=== PATIENT | male | born 1940 | race Caucasian/White ===

== ENCOUNTER 2019-06-11 15:57 | Inpatient (IN) ==
[2019-06-11] MEDS ORDERED: *HR* Warfarin 5 MG TABLET PO ONE (20:00)
[2019-06-11] MEDS ORDERED: *HR* Dextrose 50 % in Water (Vial) 50 ML VIAL IVP PRN (20:01)
[2019-06-11] MEDS ORDERED: D5% in Water 1,000 ML IVC PRN (20:01)
[2019-06-11] MEDS ORDERED: Dextrose Gel 15 GM/37.5 ML TUBE PO PRN ×2 (20:01)
[2019-06-11] MEDS ORDERED: Albuterol 2.5 MG/3 ML NEBULIZER IH PRN (20:11)
[2019-06-11] MEDS: Aspirin Enteric Coated 81 MG Tablet PO SCH (21:39)
[2019-06-11] MEDS: Gabapentin 400 MG CAPSULE PO SCH (21:40)
[2019-06-11] MEDS: ALPRAZolam 0.5 MG TABLET PO SCH (21:42)
[2019-06-11] MEDS: *HR* OxyCODONE/APAP 5/325 TABLET PO PRN (21:42)
[2019-06-11] MEDS: Insulin LISPRO 300 UNITS/3 ML VIAL SQ SCH (22:12)
[2019-06-11] MEDS: Furosemide 40 MG TABLET PO SCH (22:38)
[2019-06-12 05:47] LABS: Basophils % 0.6 %; Eosinophils # 0.2 K/mcL (0.0-0.6); Eosinophils % 3.1 %; Hematocrit 40.1 % (37.5-50.1); Hemoglobin 13.2 g/dL (12.9-16.9); Immature Granulocytes % 0.4 % (0-4); Lymphocytes # 1.6 K/mcL (0.6-4.6); Lymphocytes % 22.3 %; Mean Corpuscular HGB Conc 32.9 g/dL (31.6-35.5); Mean Corpuscular Hemoglobin 32.1 pg (28.0-33.3); Mean Corpuscular Volume 97.6 fL (83.0-100.0); Mean Platelet Volume 10.1 fL (9.4-12.4); Monocytes # 0.8 K/mcL (0.0-1.3); Monocytes % 10.6 %; Neutrophils # 4.5 K/mcL (1.6-8.9); Platelet Count 180 K/mcL (140-400); Red Blood Count 4.11 M/mcL (4.19-5.50); White Blood Count 7.1 K/mcL (4.3-11.1)
[2019-06-12 05:51] LABS: INR 1.4
[2019-06-12 06:05] LABS: Albumin 3.3 g/dL (3.5-5.7); Albumin/Globulin Ratio 1.3 (1.1-2.2); Bilirubin,Total 0.6 mg/dL (0.3-1.0); Calcium 8.6 mg/dL (8.6-10.3); Globulin 2.5 g/dL (2.4-3.5); Magnesium 1.8 mg/dL (1.6-2.6); Potassium 4.2 mEq/L (3.5-5.1); Total Protein 5.8 g/dL (6.4-8.9)
[2019-06-12] MEDS: *HR* OxyCODONE/APAP 5/325 TABLET PO PRN ×3 (07:02→21:29)
[2019-06-12] MEDS: Insulin LISPRO 300 UNITS/3 ML VIAL SQ SCH ×4 (07:44→20:39)
[2019-06-12] MEDS: ALPRAZolam 0.5 MG TABLET PO SCH ×2 (08:30→21:29)
[2019-06-12] MEDS: Diltiazem CD (24hr) 240 MG CAPSULE PO SCH (08:30)
[2019-06-12] MEDS: Gabapentin 400 MG CAPSULE PO SCH ×3 (08:30→21:30)
[2019-06-12] MEDS: Metoprolol XL (24 HR) Succ 50 MG TAB.ER.24H PO SCH (08:30)
[2019-06-12] MEDS: Furosemide 40 MG TABLET PO SCH ×2 (08:30→17:21)
[2019-06-12] MEDS: Aspirin Enteric Coated 81 MG Tablet PO SCH ×2 (08:30→21:29)
[2019-06-12] MEDS ORDERED: Warfarin perPT PO PRN (18:00)
[2019-06-12] MEDS ORDERED: *HR* Warfarin 4 MG TABLET PO ONE (18:00)
[2019-06-13] MEDS: tiZANidine 4 MG TABLET PO PRN ×2 (05:20→21:53)
[2019-06-13 05:59] LABS: INR 1.4; Prothrombin Time 15.8 Seconds (9.4-12.1)
[2019-06-13] MEDS: Aspirin Enteric Coated 81 MG Tablet PO SCH ×2 (08:38→21:53)
[2019-06-13] MEDS: Insulin LISPRO 300 UNITS/3 ML VIAL SQ SCH ×4 (08:38→21:55)
[2019-06-13] MEDS: Metoprolol XL (24 HR) Succ 50 MG TAB.ER.24H PO SCH (08:39)
[2019-06-13] MEDS: Diltiazem CD (24hr) 240 MG CAPSULE PO SCH (08:39)
[2019-06-13] MEDS: Gabapentin 400 MG CAPSULE PO SCH ×3 (08:41→21:53)
[2019-06-13] MEDS: ALPRAZolam 0.5 MG TABLET PO SCH ×2 (08:41→21:52)
[2019-06-13] MEDS: Furosemide 40 MG TABLET PO SCH ×2 (08:41→18:00)
[2019-06-13] MEDS: *HR* OxyCODONE/APAP 5/325 TABLET PO PRN ×2 (13:19→22:44)
[2019-06-13] MEDS ORDERED: *HR* Warfarin 5 MG TABLET PO ONE (18:00)
[2019-06-14] MEDS: *HR* OxyCODONE/APAP 5/325 TABLET PO PRN ×3 (05:43→18:57)
[2019-06-14] MEDS: Insulin LISPRO 300 UNITS/3 ML VIAL SQ SCH ×4 (07:34→21:06)
[2019-06-14 07:45] LABS: INR 1.7; Prothrombin Time 19.1 Seconds (9.4-12.1)
[2019-06-14] MEDS: Diltiazem CD (24hr) 240 MG CAPSULE PO SCH (08:26)
[2019-06-14] MEDS: ALPRAZolam 0.5 MG TABLET PO SCH ×2 (08:26→20:04)
[2019-06-14] MEDS: Gabapentin 400 MG CAPSULE PO SCH ×3 (08:26→20:04)
[2019-06-14] MEDS: Aspirin Enteric Coated 81 MG Tablet PO SCH ×2 (08:26→20:03)
[2019-06-14] MEDS: Metoprolol XL (24 HR) Succ 50 MG TAB.ER.24H PO SCH (08:26)
[2019-06-14] MEDS: Furosemide 40 MG TABLET PO SCH ×2 (08:27→17:11)
[2019-06-14] MEDS ORDERED: MOM Conc 10 ML UD.LIQ PO PRN (11:12)
[2019-06-14] MEDS ORDERED: *HR* Warfarin 4 MG TABLET PO ONE (18:00)
[2019-06-15] MEDS: *HR* OxyCODONE/APAP 5/325 TABLET PO PRN ×4 (01:55→23:51)
[2019-06-15 06:40] LABS: INR 2.1; Prothrombin Time 23.6 Seconds (9.4-12.1)
[2019-06-15] MEDS: Insulin LISPRO 300 UNITS/3 ML VIAL SQ SCH ×4 (07:57→20:50)
[2019-06-15] MEDS: Aspirin Enteric Coated 81 MG Tablet PO SCH ×2 (08:06→20:56)
[2019-06-15] MEDS: ALPRAZolam 0.5 MG TABLET PO SCH ×2 (08:06→20:56)
[2019-06-15] MEDS: Furosemide 40 MG TABLET PO SCH ×2 (08:06→16:34)
[2019-06-15] MEDS: Diltiazem CD (24hr) 240 MG CAPSULE PO SCH (08:06)
[2019-06-15] MEDS: Gabapentin 400 MG CAPSULE PO SCH ×3 (08:07→20:56)
[2019-06-15] MEDS: Metoprolol XL (24 HR) Succ 50 MG TAB.ER.24H PO SCH (08:07)
[2019-06-15] MEDS ORDERED: *HR* Warfarin 4 MG TABLET PO ONE (18:00)
[2019-06-16 05:14] LABS: INR 2.5
[2019-06-16] MEDS: Gabapentin 400 MG CAPSULE PO SCH ×3 (08:01→20:30)
[2019-06-16] MEDS: Diltiazem CD (24hr) 240 MG CAPSULE PO SCH (08:01)
[2019-06-16] MEDS: Aspirin Enteric Coated 81 MG Tablet PO SCH ×2 (08:01→20:30)
[2019-06-16] MEDS: Metoprolol XL (24 HR) Succ 50 MG TAB.ER.24H PO SCH (08:02)
[2019-06-16] MEDS: ALPRAZolam 0.5 MG TABLET PO SCH ×2 (08:02→20:30)
[2019-06-16] MEDS: Furosemide 40 MG TABLET PO SCH ×2 (08:02→17:22)
[2019-06-16] MEDS: Insulin LISPRO 300 UNITS/3 ML VIAL SQ SCH ×4 (08:05→20:57)
[2019-06-16] MEDS: *HR* OxyCODONE/APAP 5/325 TABLET PO PRN ×2 (12:13→20:31)
[2019-06-16] MEDS ORDERED: *HR* Warfarin 2 MG TABLET PO ONE (18:00)
[2019-06-17] MEDS: *HR* OxyCODONE/APAP 5/325 TABLET PO PRN ×4 (04:05→23:19)
[2019-06-17 06:50] LABS: INR 2.2; Prothrombin Time 24.9 Seconds (9.4-12.1)
[2019-06-17] MEDS: Insulin LISPRO 300 UNITS/3 ML VIAL SQ SCH ×4 (07:37→21:03)
[2019-06-17] MEDS: Diltiazem CD (24hr) 240 MG CAPSULE PO SCH (08:45)
[2019-06-17] MEDS: Gabapentin 400 MG CAPSULE PO SCH ×3 (08:45→21:13)
[2019-06-17] MEDS: ALPRAZolam 0.5 MG TABLET PO SCH ×2 (08:45→21:13)
[2019-06-17] MEDS: Furosemide 40 MG TABLET PO SCH ×2 (08:46→17:11)
[2019-06-17] MEDS: Aspirin Enteric Coated 81 MG Tablet PO SCH ×2 (08:46→21:13)
[2019-06-17] MEDS: Metoprolol XL (24 HR) Succ 50 MG TAB.ER.24H PO SCH (08:46)
[2019-06-17] MEDS ORDERED: *HR* Warfarin 4 MG TABLET PO ONE (18:00)
[2019-06-18] MEDS: *HR* OxyCODONE/APAP 5/325 TABLET PO PRN ×2 (05:15→14:41)
[2019-06-18 05:56] LABS: Prothrombin Time 22.5 Seconds (9.4-12.1)
[2019-06-18] MEDS: Insulin LISPRO 300 UNITS/3 ML VIAL SQ SCH ×4 (08:12→20:02)
[2019-06-18] MEDS: Furosemide 40 MG TABLET PO SCH (08:16)
[2019-06-18] MEDS: Gabapentin 400 MG CAPSULE PO SCH ×3 (08:33→19:31)
[2019-06-18] MEDS: Metoprolol XL (24 HR) Succ 50 MG TAB.ER.24H PO SCH (08:33)
[2019-06-18] MEDS: Aspirin Enteric Coated 81 MG Tablet PO SCH ×2 (08:33→19:31)
[2019-06-18] MEDS: ALPRAZolam 0.5 MG TABLET PO SCH ×2 (08:33→19:32)
[2019-06-18] MEDS: Diltiazem CD (24hr) 240 MG CAPSULE PO SCH (08:33)
[2019-06-18 15:39] LABS: Calcium 9.2 mg/dL (8.6-10.3); Magnesium 1.7 mg/dL (1.6-2.6); Potassium 4.2 mEq/L (3.5-5.1)
[2019-06-18 15:51] LABS: Basophils # 0.1 K/mcL (0.0-0.2); Basophils % 0.6 %; Eosinophils # 0.3 K/mcL (0.0-0.6); Eosinophils % 3.4 %; Hematocrit 43.7 % (37.5-50.1); Hemoglobin 14.6 g/dL (12.9-16.9); Immature Granulocytes % 0.7 % (0-4); Lymphocytes # 1.7 K/mcL (0.6-4.6); Mean Corpuscular HGB Conc 33.4 g/dL (31.6-35.5); Mean Corpuscular Volume 95.8 fL (83.0-100.0); Mean Platelet Volume 10.4 fL (9.4-12.4); Monocytes # 0.7 K/mcL (0.0-1.3); Neutrophils # 5.4 K/mcL (1.6-8.9); Platelet Count 221 K/mcL (140-400); Red Blood Count 4.56 M/mcL (4.19-5.50); Segmented Neutrophils % 65.3 %; White Blood Count 8.2 K/mcL (4.3-11.1)
[2019-06-18] MEDS: *HR* Warfarin 4 MG TABLET PO SCH (17:07)
[2019-06-18] MEDS: Furosemide 20 MG TABLET PO SCH (17:07)
[2019-06-18] MEDS: tiZANidine 4 MG TABLET PO PRN (19:32)
[2019-06-19] MEDS: *HR* OxyCODONE/APAP 5/325 TABLET PO PRN ×3 (03:24→21:44)
[2019-06-19 07:51] LABS: Hematocrit 48.2 % (37.5-50.1); Hemoglobin 15.8 g/dL (12.9-16.9); Mean Corpuscular HGB Conc 32.8 g/dL (31.6-35.5); Mean Corpuscular Hemoglobin 32.1 pg (28.0-33.3); Mean Platelet Volume 10.1 fL (9.4-12.4); Platelet Count 224 K/mcL (140-400); Red Blood Count 4.92 M/mcL (4.19-5.50); Red Cell Distribution Width 14.2 % (11.5-14.5); White Blood Count 9.4 K/mcL (4.3-11.1)
[2019-06-19] MEDS: Insulin LISPRO 300 UNITS/3 ML VIAL SQ SCH ×4 (07:54→20:38)
[2019-06-19] MEDS: Furosemide 20 MG TABLET PO SCH ×2 (08:03→17:20)
[2019-06-19] MEDS: ALPRAZolam 0.5 MG TABLET PO SCH ×2 (08:03→21:44)
[2019-06-19] MEDS: Aspirin Enteric Coated 81 MG Tablet PO SCH ×2 (08:03→21:43)
[2019-06-19] MEDS: Gabapentin 400 MG CAPSULE PO SCH ×3 (08:03→21:44)
[2019-06-19] MEDS: Metoprolol XL (24 HR) Succ 50 MG TAB.ER.24H PO SCH (08:03)
[2019-06-19] MEDS: Diltiazem CD (24hr) 240 MG CAPSULE PO SCH (08:03)
[2019-06-19 08:31] LABS: INR 2.1; Prothrombin Time 23.7 Seconds (9.4-12.1)
[2019-06-19] MEDS: tiZANidine 4 MG TABLET PO PRN (13:25)
[2019-06-19] MEDS: *HR* Warfarin 4 MG TABLET PO SCH (17:20)
[2019-06-20] MEDS: *HR* OxyCODONE/APAP 5/325 TABLET PO PRN ×3 (05:25→23:32)
[2019-06-20 06:24] LABS: INR 2.2; Prothrombin Time 25.4 Seconds (9.4-12.1)
[2019-06-20] MEDS: Insulin LISPRO 300 UNITS/3 ML VIAL SQ SCH ×4 (07:27→23:30)
[2019-06-20] MEDS: Gabapentin 400 MG CAPSULE PO SCH ×3 (07:41→23:31)
[2019-06-20] MEDS: Furosemide 20 MG TABLET PO SCH ×2 (07:41→17:27)
[2019-06-20] MEDS: Metoprolol XL (24 HR) Succ 50 MG TAB.ER.24H PO SCH (07:41)
[2019-06-20] MEDS: Diltiazem CD (24hr) 240 MG CAPSULE PO SCH (07:41)
[2019-06-20] MEDS: ALPRAZolam 0.5 MG TABLET PO SCH ×2 (07:41→23:31)
[2019-06-20] MEDS: Aspirin Enteric Coated 81 MG Tablet PO SCH ×2 (07:41→23:31)
[2019-06-20] MEDS: *HR* Warfarin 4 MG TABLET PO SCH (17:27)
[2019-06-21 08:25] VITALS: BP 123/84
[2019-06-21] MEDS: Insulin LISPRO 300 UNITS/3 ML VIAL SQ SCH (08:51)
[2019-06-21] MEDS: Aspirin Enteric Coated 81 MG Tablet PO SCH (08:54)
[2019-06-21] MEDS: ALPRAZolam 0.5 MG TABLET PO SCH (08:55)
[2019-06-21] MEDS: *HR* OxyCODONE/APAP 5/325 TABLET PO PRN (08:55)
[2019-06-21] MEDS: Metoprolol XL (24 HR) Succ 50 MG TAB.ER.24H PO SCH (08:55)
[2019-06-21] MEDS: Diltiazem CD (24hr) 240 MG CAPSULE PO SCH (08:55)
[2019-06-21] MEDS: Furosemide 20 MG TABLET PO SCH (08:55)
[2019-06-21] MEDS: Gabapentin 400 MG CAPSULE PO SCH (08:55)
== END 2019-06-21 13:02 | disposition home health service (06) | DRG 560 ==
LOC: INPGRE 19:28
PROVIDERS: ADMIT Family Medicine; ATTEND Family Medicine

== ENCOUNTER 2020-08-21 19:26 | Inpatient (IN) ==
[2020-08-21] MEDS ORDERED: ALPRAZolam 0.5 MG TABLET PO PRN (20:19)
[2020-08-22] MEDS ORDERED: *HR* Warfarin 4 MG TABLET PO SCH (09:00)
[2020-08-22] MEDS ORDERED: Albuterol 2.5 MG/3 ML NEBULIZER IH PRN (10:00)
[2020-08-22] MEDS ORDERED: Dextrose Gel 15 GM/37.5 ML TUBE PO PRN ×2 (10:18)
[2020-08-22] MEDS ORDERED: D5% in Water 1,000 ML IVC PRN (10:19)
[2020-08-22] MEDS ORDERED: *HR* Dextrose 50 % in Water (Vial) 50 ML VIAL IVP PRN (10:19)
[2020-08-22] MEDS: Insulin LISPRO 300 UNITS/3 ML VIAL SUBQ SCH ×5 (10:28→20:26)
[2020-08-22] MEDS: Gabapentin 400 MG CAPSULE PO SCH ×3 (10:28→20:26)
[2020-08-22] MEDS: ARIPiprazole 5 MG TABLET PO SCH (10:29)
[2020-08-22] MEDS: Aspirin 81 MG TAB.CHEW PO SCH (10:29)
[2020-08-22 12:00] LABS: Basophils % 0.5 %; Eosinophils # 0.1 K/mcL (0.0-0.6); Eosinophils % 1.7 %; Hematocrit 45.6 % (37.5-50.1); Hemoglobin 14.7 g/dL (12.9-16.9); Immature Granulocytes % 0.6 % (0-4); Lymphocytes # 1.4 K/mcL (0.6-4.6); Lymphocytes % 16.8 %; Mean Corpuscular HGB Conc 32.2 g/dL (31.6-35.5); Mean Corpuscular Hemoglobin 29.6 pg (28.0-33.3); Mean Corpuscular Volume 91.8 fL (83.0-100.0); Mean Platelet Volume 9.8 fL (9.4-12.4); Monocytes # 0.7 K/mcL (0.0-1.3); Monocytes % 7.8 %; Neutrophils # 6.1 K/mcL (1.6-8.9); Platelet Count 186 K/mcL (140-400); Red Blood Count 4.97 M/mcL (4.19-5.50); Red Cell Distribution Width 15.7 % (11.5-14.5); Segmented Neutrophils % 72.6 %; White Blood Count 8.4 K/mcL (4.3-11.1)
[2020-08-22 12:14] LABS: INR 1.7; Prothrombin Time 19.8 Seconds (9.4-12.1)
[2020-08-22 12:29] LABS: Calcium 8.9 mg/dL (8.6-10.3)
[2020-08-22] MEDS: Budesonide/Formoterol 80/4.5 1 PUFF INH IH SCH ×2 (12:56→21:16)
[2020-08-22] MEDS: Tiotropium 10 INH DOSE IH SCH (12:56)
[2020-08-22] MEDS: Carbidopa/Levodopa 25/100 TABLET PO SCH ×2 (14:32→20:25)
[2020-08-22] MEDS ORDERED: *HR* Warfarin 4 MG TABLET PO ONE (18:00)
[2020-08-22] MEDS ORDERED: Warfarin perPT PO PRN (18:00)
[2020-08-22] MEDS: Furosemide 40 MG TABLET PO SCH (20:25)
[2020-08-22] MEDS: *HR* OxyCODONE/APAP 5/325 TABLET PO PRN (20:26)
[2020-08-23] MEDS: *HR* OxyCODONE/APAP 5/325 TABLET PO PRN (04:19)
[2020-08-23 05:56] LABS: Basophils % 0.5 %; Eosinophils # 0.2 K/mcL (0.0-0.6); Eosinophils % 2.7 %; Hematocrit 42.2 % (37.5-50.1); Hemoglobin 13.5 g/dL (12.9-16.9); Immature Granulocytes % 0.8 % (0-4); Lymphocytes # 1.7 K/mcL (0.6-4.6); Lymphocytes % 23.2 %; Mean Corpuscular Hemoglobin 29.5 pg (28.0-33.3); Mean Corpuscular Volume 92.1 fL (83.0-100.0); Mean Platelet Volume 10.3 fL (9.4-12.4); Monocytes # 0.7 K/mcL (0.0-1.3); Monocytes % 9.4 %; Neutrophils # 4.7 K/mcL (1.6-8.9); Platelet Count 188 K/mcL (140-400); Red Blood Count 4.58 M/mcL (4.19-5.50); Red Cell Distribution Width 15.7 % (11.5-14.5); Segmented Neutrophils % 63.4 %; White Blood Count 7.4 K/mcL (4.3-11.1)
[2020-08-23 06:01] LABS: Prothrombin Time 22.4 Seconds (9.4-12.1)
[2020-08-23 06:13] LABS: Calcium 8.8 mg/dL (8.6-10.3); Potassium 3.9 mEq/L (3.5-5.1)
[2020-08-23] MEDS: Metoprolol XL (24 HR) Succ 50 MG TAB.ER.24H PO SCH (09:29)
[2020-08-23] MEDS: Insulin LISPRO 300 UNITS/3 ML VIAL SUBQ SCH ×4 (09:29→21:27)
[2020-08-23] MEDS: ARIPiprazole 5 MG TABLET PO SCH (09:29)
[2020-08-23] MEDS: Aspirin 81 MG TAB.CHEW PO SCH (09:29)
[2020-08-23] MEDS: Gabapentin 400 MG CAPSULE PO SCH ×3 (09:29→21:26)
[2020-08-23] MEDS: DilTIAZem CD (24hr) 240 MG CAP.ER.24H PO SCH (09:30)
[2020-08-23] MEDS: Carbidopa/Levodopa 25/100 TABLET PO SCH ×3 (09:30→21:26)
[2020-08-23] MEDS: Furosemide 40 MG TABLET PO SCH ×2 (09:30→21:26)
[2020-08-23] MEDS: Budesonide/Formoterol 80/4.5 1 PUFF INH IH SCH ×2 (10:13→21:56)
[2020-08-23] MEDS: Tiotropium 10 INH DOSE IH SCH (10:13)
[2020-08-23 11:24] LABS: Estimated Average Glucose 183 mg/dl
[2020-08-23] MEDS ORDERED: *HR* Warfarin 4 MG TABLET PO ONE (18:00)
[2020-08-24] MEDS: *HR* OxyCODONE/APAP 5/325 TABLET PO PRN ×3 (01:38→18:55)
[2020-08-24 04:53] LABS: INR 2.1; Prothrombin Time 23.9 Seconds (9.4-12.1)
[2020-08-24] MEDS: ARIPiprazole 5 MG TABLET PO SCH (08:22)
[2020-08-24] MEDS: DilTIAZem CD (24hr) 240 MG CAP.ER.24H PO SCH (08:22)
[2020-08-24] MEDS: Insulin LISPRO 300 UNITS/3 ML VIAL SUBQ SCH ×4 (08:23→21:33)
[2020-08-24] MEDS: Aspirin 81 MG TAB.CHEW PO SCH (08:23)
[2020-08-24] MEDS: Carbidopa/Levodopa 25/100 TABLET PO SCH ×3 (08:23→21:32)
[2020-08-24] MEDS: Gabapentin 400 MG CAPSULE PO SCH ×3 (08:23→21:32)
[2020-08-24] MEDS: Furosemide 40 MG TABLET PO SCH ×2 (08:23→21:32)
[2020-08-24] MEDS: Metoprolol XL (24 HR) Succ 50 MG TAB.ER.24H PO SCH (08:23)
[2020-08-24] MEDS: Budesonide/Formoterol 80/4.5 1 PUFF INH IH SCH ×2 (10:08→21:06)
[2020-08-24] MEDS: Tiotropium 10 INH DOSE IH SCH (10:09)
[2020-08-24] MEDS ORDERED: *HR* OxyCODONE/APAP 5/325 TABLET PO ONE (17:28)
[2020-08-24] MEDS ORDERED: *HR* Warfarin 4 MG TABLET PO ONE (18:00)
[2020-08-25 05:07] LABS: INR 2.4; Prothrombin Time 27.2 Seconds (9.4-12.1)
[2020-08-25] MEDS: *HR* OxyCODONE/APAP 5/325 TABLET PO PRN (09:10)
[2020-08-25] MEDS: DilTIAZem CD (24hr) 240 MG CAP.ER.24H PO SCH (09:11)
[2020-08-25] MEDS: Carbidopa/Levodopa 25/100 TABLET PO SCH (09:11)
[2020-08-25] MEDS: Metoprolol XL (24 HR) Succ 50 MG TAB.ER.24H PO SCH (09:11)
[2020-08-25] MEDS: Gabapentin 400 MG CAPSULE PO SCH (09:11)
[2020-08-25] MEDS: ARIPiprazole 5 MG TABLET PO SCH (09:11)
[2020-08-25] MEDS: Insulin LISPRO 300 UNITS/3 ML VIAL SUBQ SCH ×2 (09:11→11:59)
[2020-08-25] MEDS: Aspirin 81 MG TAB.CHEW PO SCH (09:11)
[2020-08-25] MEDS: Furosemide 40 MG TABLET PO SCH (09:11)
[2020-08-25] MEDS: Tiotropium 10 INH DOSE IH SCH (09:32)
[2020-08-25] MEDS: Budesonide/Formoterol 80/4.5 1 PUFF INH IH SCH (09:32)
[2020-08-25 10:01] VITALS: BP 133/81
[2020-08-25] MEDS ORDERED: *HR* Warfarin 4 MG TABLET PO ONE (18:00)
== END 2020-08-25 15:51 | disposition home health service (06) | DRG 945 ==
LOC: INPGRE 08-22 09:55
PROVIDERS: ADMIT Family Medicine; ATTEND Family Medicine